=== PATIENT | female | born 1995 | race Caucasian/White ===

== ENCOUNTER 2020-05-08 14:32 | Emergency (ER) | payer OTHER, SELFPAY ==
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
[2020-05-08 15:02] VITALS: BP 127/78; PULSE 107; RESP 18; TEMP 37.3; O2SAT 99
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
--- NOTE | 2020-05-08 18:52 | PC.NURSE ---
Prescriptions called to [facility] in [place].
== END 2020-05-08 18:53 | disposition home or self-care (01) ==
PROVIDERS: Emergency Provider Emergency Medicine; PCP Family Medicine
DX: S13.4XXA Sprain of ligaments of cervical spine, initial encounter (principal); S02.2XXA Fracture of nasal bones, initial encounter for closed fracture; V43.52XA Car driver injured in collision with other type car in traffic accident, initial encounter
CPT/HCPCS: 70450; 70486; 72125; 99284